=== PATIENT | male | born 1960 | race Asian ===

== ENCOUNTER 2024-08-06 09:24 | Day surgery (SDC) | payer OTHER ==
[~2024-08-06] VITALS: Ht 167.6 cm; Wt 45.5 kg
[~2024-08-06 09:24] MED LIST: ASPI-1444 PO; ATOR20TA65 PO; BUDE10.7 IH; DOCU-412 PO; FAMO20 PO; LIDOCAINE/PF 2% 5 ML SYRINGE IVP ONE; PROPOFOL 1% 20 ML VIAL IVP ONE
[2024-08-06] MEDS: SODIUM CHLORIDE 0.9% 1,000 ML IV ONE (10:20)
== END 2024-08-06 13:20 | disposition home or self-care (01) ==
LOC: SURGERY 09:24
PROVIDERS: ATTEND Internal Medicine
DX: R19.5 Other fecal abnormalities (principal); D12.3 Benign neoplasm of transverse colon; D12.2 Benign neoplasm of ascending colon; K64.8 Other hemorrhoids; F41.9 Anxiety disorder, unspecified; K21.9 Gastro-esophageal reflux disease without esophagitis; Z79.899 Other long term (current) drug therapy; J44.9 Chronic obstructive pulmonary disease, unspecified; E78.00 Pure hypercholesterolemia, unspecified; Z79.82 Long term (current) use of aspirin; Z88.8 Allergy status to other drugs, medicaments and biological substances; Z87.891 Personal history of nicotine dependence; Z98.890 Other specified postprocedural states; Z87.01 Personal history of pneumonia (recurrent)
CPT/HCPCS: 45385; 45380; 88305; 93005; J2704; J3490